=== PATIENT | female | born 1965 ===

== ENCOUNTER 2019-10-07 08:18 | Observation (INO) ==
--- NOTE | 2019-10-02 16:33 | PAT Medication Instructions ---
Medication Instructions Date of Service October 02, 2019 Home Medications cetirizine [Zyrtec] 10 mg PO DAILY PRN chlorthalidone 25 mg PO QAM duloxetine [Cymbalta] 30 mg PO HS leflunomide 20 mg PO HS lisinopril 10 mg PO HS multivitamin 1 tab PO DAILY omeprazole 20 mg PO HS prednisone 5 mg PO HS simvastatin [Zocor] 5 mg PO HS trazodone 50 mg PO HS ASK your prescriber and surgeon leflunomide 20 mg PO HS DO NOT take the morning of surgery multivitamin 1 tab PO DAILY cetirizine [Zyrtec] 10 mg PO DAILY PRN chlorthalidone 25 mg PO QAM Take evening before surgery omeprazole 20 mg PO HS prednisone 5 mg PO HS simvastatin [Zocor] 5 mg PO HS trazodone 50 mg PO HS lisinopril 10 mg PO HS duloxetine [Cymbalta] 30 mg PO HS OTHERWISE NOTHING TO EAT OR DRINK AFTER MIDNIGHT: Other Notes If you have any questions please call us at [phone] or [phone] or [phone] or [phone]
--- NOTE | 2019-10-03 08:37 | History & Physical Report ---
Date of Service October 03, 2019 History of Present Illness Primary Care Provider: Balbina Jackson DO Allergies Allergy/AdvReac Type Severity Reaction Status Date / Time adhesive tape Allergy Severe SKIN Verified 10/02/19 08:48 REMOVAL OF ALL LAYERS Penicillins Allergy Intermediate HIVES Verified 05/09/12 10:33 Home Medications Home Medications Medication Instructions Recorded Confirmed Type cetirizine [Zyrtec] 10 mg PO DAILY PRN 10/02/19 10/02/19 History chlorthalidone 25 mg PO QAM 10/02/19 10/02/19 History duloxetine [Cymbalta] 30 mg PO HS 10/02/19 10/02/19 History leflunomide 20 mg PO HS 10/02/19 10/02/19 History lisinopril 10 mg PO HS 10/02/19 10/02/19 History multivitamin 1 tab PO DAILY 10/02/19 10/02/19 History omeprazole 20 mg PO HS 10/02/19 10/02/19 History prednisone 5 mg PO HS 10/02/19 10/02/19 History simvastatin [Zocor] 5 mg PO HS 10/02/19 10/02/19 History trazodone 50 mg PO HS 10/02/19 10/02/19 History Past Med/Surg History Medical History Asthma RELATED TO ALLERGIES Depression with anxiety GERD (gastroesophageal reflux disease) Hyperlipidemia Hypertension Migraine Osteoarthritis Peripheral neuropathy RT FOOT Rheumatoid arthritis WAS TAKING HUMIRA (STOPPED PRIOR TO SURGERY PER INSTRUCTIONS) Surgical History History of colonoscopy History of endometrial ablation History of nasal septoplasty 4 TOTAL SURGERIES History of open reduction and internal fixation (ORIF) procedure LEFT ANKLE (HARDWARE INTACT) Previous back surgery LASER LUMBAR SPINE SURGERY [place] teeth removed Family History Other No significant family history Social History Preferred Language: Latvian Gymnastic Coach Required: No Beliefs That Will Affect Care: None Current Living Situation: Significant Other Feels Safe at Home: Yes Safety Concerns: Feels Safe At This Time Smoking Status: Never smoker Do You Dip or Chew Tobacco: No ; Second Hand Exposure: Yes ( A CHILD) ; Tobacco Cessation Education Requested by Patient: No Hx Alcohol Use: Yes Alcohol type: wine Hx Substance Use: No
--- NOTE | 2019-10-03 08:38 | History & Physical Report ---
Date of Service October 03, 2019 date of surgery: 10-07-19 Assessment & Plan (1) Arthritis of right knee: Risks and benefits of procedure discussed in detail today, patient would like to proceed with a Right total knee replacement at [facility] as scheduled. will obtain PATs at [facility]. Will place on ASA 81mg po bid x 1 month post op, f/u 2 weeks post op for routine post-operative care and x-ray, sooner if having any problems. will make arrangements for HHPT at the time of discharge. At this point in time, has failed conservative measures and would like to proceed with surgical intervention. History of Present Illness Chief Complaint: Right knee pain Primary Care Provider: Balbina Jackson DO Ms Antony is a 54 year old female who is here for a follow up of Right knee pain, presents for pre-op evaluation prior to a right total knee replacement at [facility]. She complains of pain and stiffness in her right knee. She states that the symptoms have been chronic non-traumatic. Currently the patient states that the symptoms are moderate-severe and is described as aching and throbbing. The symptoms occur intermittently. The symptoms are aggravated by ascending stairs, descending stairs, daily activities, kneeling, repetitive activities, sleeping in any position, squatting and walking. In addition to knee pain she is also experiencing limping, nighttime awakening, decreased mobility, difficulty bending, difficulty going to sleep, pain, stiffness and weakness. Prior NSAIDs include ibuprofen and Voltaren topical gel. Patient was treated with b/l knee Gel One injections in November, without much relief. Allergies Allergy/AdvReac Type Severity Reaction Status Date / Time adhesive tape Allergy Severe SKIN Verified 10/02/19 08:48 REMOVAL OF ALL LAYERS Penicillins Allergy Intermediate HIVES Verified 05/09/12 10:33 Home Medications Home Medications Medication Instructions Recorded Confirmed Type cetirizine [Zyrtec] 10 mg PO DAILY PRN 10/02/19 10/02/19 History chlorthalidone 25 mg PO QAM 10/02/19 10/02/19 History duloxetine [Cymbalta] 30 mg PO HS 10/02/19 10/02/19 History leflunomide 20 mg PO HS 10/02/19 10/02/19 History lisinopril 10 mg PO HS 10/02/19 10/02/19 History multivitamin 1 tab PO DAILY 10/02/19 10/02/19 History omeprazole 20 mg PO HS 10/02/19 10/02/19 History prednisone 5 mg PO HS 10/02/19 10/02/19 History simvastatin [Zocor] 5 mg PO HS 10/02/19 10/02/19 History trazodone 50 mg PO HS 10/02/19 10/02/19 History lorazepam 0.5 mg PO HS PRN 10/03/19 10/03/19 History Past Med/Surg History Medical History Asthma RELATED TO ALLERGIES- IMPROVED WITH ALLERGY MEDICINE Depression with anxiety GERD (gastroesophageal reflux disease) WELL CONTROLLED AND STABLE Hyperlipidemia Hypertension Migraine Osteoarthritis Peripheral neuropathy RT FOOT Rheumatoid arthritis WAS TAKING HUMIRA (STOPPED PRIOR TO SURGERY PER INSTRUCTIONS) Surgical History History of colonoscopy History of endometrial ablation History of nasal septoplasty 4 TOTAL SURGERIES History of open reduction and internal fixation (ORIF) procedure LEFT ANKLE (HARDWARE INTACT) Previous back surgery LASER LUMBAR SPINE SURGERY [place] teeth removed Family History Other No significant family history Social History Preferred Language: Palauan Compliance Specialist Required: No Beliefs That Will Affect Care: None Current Living Situation: Significant Other Feels Safe at Home: Yes Safety Concerns: Feels Safe At This Time Smoking Status: Never smoker Do You Dip or Chew Tobacco: No ; Second Hand Exposure: Yes ( A CHILD) ; Tobacco Cessation Education Requested by Patient: No Hx Alcohol Use: Yes Alcohol type: wine Hx Substance Use: No Review of Systems Review of Systems: All systems reviewed & are unremarkable except as noted in HPI & below Constitutional: no fever, no chills and no sweats Respiratory: no cough and no dyspnea Cardiovascular: no chest pain, no dyspnea and no orthopnea Gastrointestinal: no abdominal pain, no nausea and no vomiting Musculoskeletal: as per Subjective / HPI Physical Exam Physical Exam: Ht: 5ft 8in Wt: 79.8kg BP: 118/68 Pulse: 78 Constitutional: WD/WN, vitals as above no acute distress Respiratory: normal respiratory effort, lungs clear to auscultation no respiratory distress, no labored breathing and does not use accessory muscles Cardiovascular: RRR, no murmur, no edema Gastrointestinal (Abdomen): normal bowel sounds, soft, nontender, no he patosplenomegaly Musculoskeletal: Knee: + knee abnormal to inspection (RIGHT KNEE- ), + effusion (+1 effusion), + surgical incision (well healed portals), + limited ROM of knee (ROM 0/3/110), + knee ROM with crepitation, + joint line tenderness (medial joint line) and + Trevor's sign positive; no deformity, no skin erythema, no ecchymosis, no valgus laxity, no varus laxity, anterior drawer test negative, Lyle's sign negative and pivot shift test negative Results & Data Results & Data ([facility]) Diagnostic Findings Right Knee X-ray from May 2019 showing degenerative changes to the right knee, narrowing of the medial compartment and patello-femoral joint with patellar spurring noted, findings showing joint space narrowing of the medial compartment and patello-femoral joint, osteophyte formation and subchondral sclerosis noted. overall varus alignment. no acute bony pathology noted.
--- NOTE | 2019-10-03 09:57 | Anesthesiology Consultation ---
Date of Service October 03, 2019 Assessment & Plan (1) Encounter for pre-operative examination: Chart Review Chart Review: Acceptable Risk for Surgery and Patient seen in Pre Admission Testing - Pt has history of RA- no recent c-spine- will leave to anesthesia discretion if needed DOS. Covid testing 10/03/19= Negative Per PAT apt 10/03/19, pt resides in [facility]. 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 Denies any known Covid positive contacts. Denies any current Covid related symptoms. Has preop Covid testing scheduled today at [facility] (10/02). Surgeon sent order Teaching & Discussion Pre-Anesthesia Teaching/Discussion Notes: Instructed NPO after midnight before surgery,except medications with 15 cc of water. Medication instructions provided according to the [facility] guidelines. History Surgery Operation Date: 10/07/19 09:55 Proposed Procedures p Right Total Knee Arthroplasty - Samuel Alexis DO Height/Weight Height: 5 ft 8 in Weight: 81.4 kg Allergies Allergy/AdvReac Type Severity Reaction Status Date / Time adhesive tape Allergy Severe SKIN Verified 10/02/19 08:48 REMOVAL OF ALL LAYERS Penicillins Allergy Intermediate HIVES Verified 05/09/12 10:33 Medications Home Medications Medication Instructions Recorded Confirmed Last Taken cetirizine [Zyrtec] 10 mg PO DAILY PRN 10/02/19 10/02/19 Unknown chlorthalidone 25 mg PO QAM 10/02/19 10/02/19 Unknown duloxetine [Cymbalta] 30 mg PO HS 10/02/19 10/02/19 Unknown leflunomide 20 mg PO HS 10/02/19 10/02/19 Unknown lisinopril 10 mg PO HS 10/02/19 10/02/19 Unknown multivitamin 1 tab PO DAILY 10/02/19 10/02/19 Unknown omeprazole 20 mg PO HS 10/02/19 10/02/19 Unknown prednisone 5 mg PO HS 10/02/19 10/02/19 Unknown simvastatin [Zocor] 5 mg PO HS 10/02/19 10/02/19 Unknown trazodone 50 mg PO HS 10/02/19 10/02/19 Unknown lorazepam 0.5 mg PO HS PRN 10/03/19 10/03/19 Unknown Past Medical History Medical History Asthma RELATED TO ALLERGIES- IMPROVED WITH ALLERGY MEDICINE Depression with anxiety GERD (gastroesophageal reflux disease) WELL CONTROLLED AND STABLE Hyperlipidemia Hypertension Migraine Osteoarthritis Peripheral neuropathy RT FOOT Rheumatoid arthritis WAS TAKING HUMIRA (STOPPED PRIOR TO SURGERY PER INSTRUCTIONS) Exercise / Class Metabolic Activity II 4-5 Yardwork/Stairs/Walk up hill (ONE FLIGHT OF STAIRS-NO CHEST PAIN OR SOB ) Past Family History Family History Other No significant family history Past Surgical History Surgical History History of colonoscopy History of endometrial ablation History of nasal septoplasty 4 TOTAL SURGERIES History of open reduction and internal fixation (ORIF) procedure LEFT ANKLE (HARDWARE INTACT) Previous back surgery LASER LUMBAR SPINE SURGERY [place] teeth removed Past Anesthesia History No Hx of Anesthesia Complications and No Family Hx of Anesthesia Complications History of PONV No Hx of PONV and No Hx of Motion Sickness Social History Smoking Status: Never smoker Do You Dip or Chew Tobacco: No Hx Alcohol Use: Yes Alcohol type: wine alcohol intake frequency: a few times a week Hx Substance Use: No substance use type: does not use Review of Systems Occ snoring- no apnea Wheezing- occ with asthma- currently stable and controlled Patient denies chest pain, shortness of breath, dyspnea on exertion,, cough, palpitations. No hx of seizures, stroke, ID, apnea/snoring. No hx of blood clots or blood transfusions Physical Exam Vital Signs VITALS BP 134/87 P 70 TEMP 97.3 SP02 100% RESP 16 Constitutional no acute distress ENMT Mouth: no TMJ clicking Thyromental Distance: > or= 3.5 Finger Breadths (3.5) Mallampati Class: III Cap fell off back molar Front top left tooth capped Neck neck extension not limited Respiratory normal respiratory effort; no respiratory distress Auscultation: lungs clear to auscultation bilaterally; no wheezes Cardiovascular Rate/Rhythm: regular rate and regular rhythm Heart Sounds: no murmur Vessels: no carotid bruit Musculoskeletal Spine: no pain with cervical ROM Neurologic moves all extremities Psychiatric Orientation: alert Testing Laboratory Results PT 11.1 Seconds (9.0-12.0) 10/03/19 10:17 INR 1.1 (0.9-1.1) 10/03/19 10:17 APTT 26.1 Seconds (21.0-31.0) 10/03/19 10:17 Hemoglobin A1c 5.3 % (4.5-5.6) 10/03/19 10:17 Urine Color Yellow 10/03/19 10:17 Urine Appearance Clear (Clear) 10/03/19 10:17 Urine pH 7.0 (4.5-7.5) 10/03/19 10:17 Ur Specific [place] 1.018 (1.000-1.030) 10/03/19 10:17 Urine Protein Negative (Negative) 10/03/19 10:17 Urine Glucose (UA) Negative (Negative) 10/03/19 10:17 Urine Ketones Negative (Negative) 10/03/19 10:17 Urine Nitrite Negative (Negative) 10/03/19 10:17 Ur Leukocyte Esterase Negative (Negative) 10/03/19 10:17 Blood Type AB Negative 10/03/19 10:17 Antibody Screen NEGATIVE 10/03/19 10:17 09/19/19= WBC: 4.55 H/H: 14.0/44.2 PLATELETS: 221 SODIUM: 138 POTASSIUM: 4.2 CHLORIDE: 100 CO2: 26 BUN: 14 CREATININE: 0.8 GLUCOSE: 80 Electrocardiogram Date: 10/03/19 Findings: + NSR @ (67) Chest X-Ray Date: 10/03/19 Findings: + NAD
--- NOTE | 2019-10-03 10:41 | XRay Report ---
XR chest Pre-admission PA/Lat CLINICAL HISTORY: pat preoperative COMPARISON STUDY: No previous studies for comparison. FINDINGS: The bones soft tissues and hemidiaphragms are normal. The cardiomediastinal silhouette is n ormal. The lungs are clear. The pulmonary vasculature is normal. IMPRESSION: Negative chest. ACT 112: Negative or not required by law. The above report was generated using voice recognition software. It may contain grammatical, syntax or spelling errors. Electronically signed by: Jeffy Lee M.D. 10/03/2019 10:40 AM
[2019-10-03 10:49] LABS: Appearance Urine Clear (Clear); Bilirubin Urine Negative (Negative); Blood Urine Negative (Negative); Color Urine Yellow; Glucose Urine UA Negative (Negative); Ketones Urine Negative (Negative); Leukocyte Esterase Urine Negative (Negative); Nitrite Urine Negative (Negative); Protein Urine Negative (Negative); Specific Gravity Urine 1.018 (1.000-1.030); Urobilinogen Urine Negative (Negative)
[2019-10-03 10:59] LABS: INR 1.1 (0.9-1.1); Partial Thromboplastin Ratio 0.9; Partial Thromboplastin Time 26.1 Seconds (21.0-31.0); Prothrombin Time 11.1 Seconds (9.0-12.0)
[2019-10-03 12:29] LABS: Estimated Average Glucose 105 mg/dl; Hemoglobin A1C 5.3 % (4.5-5.6)
--- NOTE | 2019-10-04 07:01 | Electrocardiogram Report ---
Test Reason : Blood Pressure : / mmHG Vent. Rate : 067 BPM Atrial Rate : 067 BPM P-R Int : 178 ms QRS Dur : 080 ms QT Int : 422 ms P-R-T Axes : 071 066 055 degrees QTc Int : 445 ms Normal sinus rhythm Normal ECG No previous ECGs available Confirmed by Nolan Mena ([id number]) on 10/04/2019 7:01:36 AM Referred By: Samuel Alexis Confirmed By:Nolan Mena
[~2019-10-07 08:18] MED LIST: ACETAMINOPHEN 500 MG TAB PO SCH; BUPIVACAINE 0.5 % 5 MG/1 ML PF 10ML VIAL ONE; CLINDAMYCIN 600 MG/54 ML BAG IV SCH; CeleBREX 200 MG CAP PO SCH; EPINEPHrine INJ 1 MG/ML AMP ONE; FAMOTIDINE 20 MG TAB PO SCH; GABAPENTIN 600 MG DOSE PO SCH; LR 500ML BOLUS, THEN 15ML/HR IV SCH; METOCLOPRAMIDE HCL 10 MG TABLET PO SCH; ROPIVACAINE 0.5% 5 MG/ML 30 ML VIAL ONE; ROPIVACAINE 0.5% HCL/PF 150 MG, BUPIVACAINE 0.5% MPF 30 ML, EPINEPHrine 30MG/30ML (OR U... INSTIL SCH; TRANEXAMIC ACID 1,000 MG **IV Intra-op IV SCH; TRANEXAMIC ACID 1,000 MG **IV Pre-op IV SCH
--- NOTE | 2019-10-07 08:56 | History & Physical Bridge Note ---
Date of Service October 07, 2019 History & Physical Bridge Note I have examined the patient, reviewed the History & Physical and in the interval since the performance of the History & Physical I have noted the following changes of clinical significance: no changes noted
[2019-10-07] MEDS ORDERED: ORTHO JOINT ANESTHETIC ONE (09:21)
[2019-10-07] MEDS ORDERED: BACITRACIN INJ 50,000 UNIT VIAL ONE (09:21)
[2019-10-07] MEDS ORDERED: MIDAZOLAM HCL 1 MG/ML 2ML VIAL ONE (09:27)
[2019-10-07] MEDS ORDERED: fentaNYL citrate 100 MCG/2 ML VIAL ONE (09:27)
--- NOTE | 2019-10-07 11:45 | Operative Report ---
Post Operative Report Pre & Post Diagnosis Operation Date: 10/07/19 09:55 Pre-Op Diagnosis: Unilateral Primary Osteoarthritis, Right Knee Post-Op Diagnosis: Unilateral Primary Osteoarthritis, Right Knee I identified the patient and participated in the time-out.: Yes Procedure Operation Date: 10/07/19 09:55 Actual Procedures p Right Total Knee Arthroplasty(Right) utilizing [employer] journey to non- block total knee arthroplasty size 3 femur size 3 tibia size 9 polyethylene size 32 oval patella- Samuel Alexis DO Surgeon Samuel Alexis DO Aquaculture Farm Manager ROLANDA Philip Estimated Blood Loss 10 Findings Consistent with Post-Op Diagnosis Patient presents with severe end-stage tricompartmental degenerative joint disease varus alignment subchondral sclerotic changes with marginal osteophytes eburnated [id number] pseudo-ligamentous laxity as well as a moderate to large effusion Specimens Bone and cartilage Drains Medium bore Hemovac Anesthesia Type MAC Regional Complications none Disposition Accompanied Patient To Recovery: No Disposition: Recovery Room Indications Patient presents with severe end-stage DJD of the right knee no response to conservative management she is failed attempted conservative management clinic physical therapy anti-inflammatories relative rest activity modification corticosteroid injections Visco supplementation she presents for right total knee arthroplasty above intraoperative findings no time surgery. Description of Procedure After proper prepping and draping of the Right lower extremity anterior midline incision was made over the region of the extensor extensor mechanism after meticulous hemostasis was obtained and maintained in subcutaneous tissues a medial parapatellar incision was made The patella was subluxed lateralward the medial lateral gutter were cleaned from any hypertrophic synovitis and scar tissue of the distal femoral block was placed and the distal femoral osteotomy cut was made subsequently the chamfers anterior and posterior osteotomy cuts were made utilizing the 4-in-1 block the tibia was subsequently subluxed anteriorward medial and ateral meniscal remnants were excised in their entirety remnants of the anterior and posterior cruciate ligaments were excised in their entirety excellent exposure of the proximal tibia was obtained the tibial osteotomy guide was placed on the proximal tibial osteotomy cut was made once again the knee was irrigated with copious amounts of sterile saline solution the patella was subsequently everted lateralward thickened scar tissue around the patella was removed the patella was subsequently cut utilizing a freehand technique and was drilled prepared for final preparation and placement of patella socially flexion-extension gaps were checked and the equal and symmetric trials were placed to the appropriate femoral and tibial trials with poly-spacer being placed for equal flexion and extension gaps and full range of motion including extension to 0 and flexion to 140 the trial components after having been taken to recovery range of motion was subsequently removed meticulous hemostasis was obtained and maintained subsequently a knee block injection of joint cocktail including ropivacaine 0.5% 150 mg. Bupivacaine 0.5% epinephrine 1-200,030 mL's toradol 30 mg dexamethasone 4 mg ketamine 10 mg clonidine 100 micrograms normal saline solution 30 mg was infiltrated into the soft tissues of the posterior knee medial lateral gutters and periosteal synovium special attention was paid to protect neurovascular structures at all times subsequently trial components having been removed the knee was irrigated with sterile saline solution. debris was removed the proximal tibia was subsequently prepared and was made ready for the placement of the tibial component tibial component was also cemented and tamped into position the femoral component was subsequently placed and cemented in the position the patellar component was subsequently cemented in position because hemostasis once again obtained and maintained wound having been thoroughly irrigated with debridement and debridement lavage was performed as well as a medial parapatellar incision closed with #1 Vicryl in interrupted fashion subcutaneous was closed with #2 Vicryl skin was closed with skin clips. PA-C was necessary for prepping and drapping as well as wound closure of deep fascia Sub cutaneous tissue and skin and was necessary for the case. A sterile compressive dressing was placed patient was taken to recovery in stable condition of report dictated by Reuben I attest to the content of the Intraoperative Record and any orders documented therein. Any exceptions are noted below. I attest to the content of the Intraoperative Record and any orders documented therein. Any exceptions are noted below.
[2019-10-07] MEDS ORDERED: PROPOFOL IV EMULSION 10 MG/ML 20 ML VIAL IV ONE (12:07)
[2019-10-07] MEDS ORDERED: LIDOCAINE HCL 2% 2 ML VIAL/AMP(20MG/ML) INFIL ONE (12:07)
[2019-10-07] MEDS ORDERED: ATROPINE SULFATE 0.1 MG/ML 10ML SYR IV PRN (12:41)
[2019-10-07] MEDS ORDERED: ePHEDrine sulfate 50 MG/ML AMP IV PRN (12:41)
--- NOTE | 2019-10-07 12:49 | XRay Report ---
XR knee RT 1 or 2V routine HISTORY: 54 years-old Female Surgical Post Op right knee total joint arthroplasty COMPARISON: None TECHNIQUE: 2 views the right knee FINDINGS: Right knee total joint arthroplasty and patella resurfacing. Satisfactory alignment without acute fra cture or retained foreign body. Expected postsurgical soft tissue swelling and deep tissue air with s urgical drainage catheter. IMPRESSION: Right knee total joint arthroplasty with expected postoperative findings. ACT 112: Negative or not required by law. The above report was generated using voice recognition software. It may contain grammatical, syntax o r spelling errors. Electronically signed by: Andrez Galeas M.D. 10/07/2019 12:47 PM
--- NOTE | 2019-10-07 13:19 | Anesthesiology Progress Note ---
Date of Service October 07, 2019 Anesthesia Post Procedure Vital Signs Vital Signs: Temp Pulse Pulse Resp BP Pulse Ox 10/07/19 13:05 36.4 C L 69 14 98/65 L 96 10/07/19 12:55 36.4 C L 69 14 111/69 99 10/07/19 12:45 71 14 102/68 97 10/07/19 12:35 72 16 108/65 98 10/07/19 12:25 83 20 106/65 100 10/07/19 12:18 36.9 C 80 14 97/59 L 99 10/07/19 09:16 36.6 C 74 16 126/80 98 Transfer of Care Handoff Completed per policy Notes Mental Status: alert / awake / arousable Patient Amnestic to Procedure: Yes Nausea / Vomiting: adequately controlled Pain: adequately controlled Airway Patency, RR, SpO2: stable & adequate BP & HR: stable & adequate Hydration State: stable & adequate Neuraxial Anesthesia: was administered and sensory block is resolving Anesthetic Complications: no major complications apparent
[2019-10-07] MEDS ORDERED: ONDANSETRON INJ 2 MG/ML 2 ML VIAL IV PRN (13:36)
[2019-10-07] MEDS ORDERED: METOCLOPRAMIDE HCL INJ 5 MG/ML 2 ML VIAL IV PRN (13:36)
[2019-10-07] MEDS ORDERED: NALOXONE HCL 0.4 MG/1 ML VIAL/CARP IV PRN (13:36)
[2019-10-07] MEDS ORDERED: MAGNESIUM HYDROXIDE SUSP 30 ML UDC PO PRN (13:36)
[2019-10-07] MEDS ORDERED: bisacodyL 10 MG SUPP PR PRN (13:36)
[2019-10-07] MEDS ORDERED: HYDROmorphone INJ 1 MG/ML SYRINGE IV PRN (13:36)
[2019-10-07] MEDS ORDERED: CETIRIZINE HCL 10 MG TABLET PO PRN (13:36)
[2019-10-07] MEDS ORDERED: LORazepam 0.5 MG TAB PO PRN (13:36)
[2019-10-07] MEDS: SODIUM CHLORIDE 0.9% 1000ML 1,000 ML IV SCH ×2 (14:14→23:51)
[2019-10-07] MEDS: ACETAMINOPHEN 500 MG TAB PO SCH ×2 (14:29→21:45)
[2019-10-07] MEDS: CLINDAMYCIN 600 MG in DEXTROSE 5% 50 ML IV SCH (18:13)
[2019-10-07] MEDS: KETOROLAC TROMETHAMINE 15 MG/ML VIAL IV SCH ×2 (18:14→23:51)
[2019-10-07] MEDS: OXYCODONE HCL IR 5 MG TAB (IMMEDIATE RELEASE) PO PRN (20:04)
[2019-10-07] MEDS: DOCUSATE SODIUM 100 MG CAP PO SCH (20:11)
[2019-10-07] MEDS: ASPIRIN 81 MG ECTAB PO SCH (20:11)
[2019-10-07] MEDS ORDERED: CeleBREX 200 MG CAP PO SCH (21:00)
[2019-10-07] MEDS ORDERED: lisinopriL 10 MG TAB PO SCH (21:00)
[2019-10-07] MEDS ORDERED: predniSONE 5 MG TAB PO SCH (21:00)
[2019-10-07] MEDS ORDERED: SIMVASTATIN 5 MG TAB PO SCH (21:00)
[2019-10-07] MEDS ORDERED: SENNA 8.6 MG TAB PO SCH (21:00)
[2019-10-07] MEDS ORDERED: DULOXETINE HCL 30 MG CAP PO SCH (21:00)
[2019-10-07] MEDS ORDERED: LEFLUNOMIDE 10 MG TAB PO SCH (21:00)
[2019-10-07] MEDS ORDERED: TRAZODONE HCL 50 MG TAB PO SCH (21:00)
[2019-10-08] MEDS: CLINDAMYCIN 600 MG in DEXTROSE 5% 50 ML IV SCH (02:46)
[2019-10-08] MEDS: OXYCODONE HCL IR 5 MG TAB (IMMEDIATE RELEASE) PO PRN ×3 (02:47→12:31)
[2019-10-08] MEDS: KETOROLAC TROMETHAMINE 15 MG/ML VIAL IV SCH ×2 (06:03→12:23)
[2019-10-08] MEDS: ACETAMINOPHEN 500 MG TAB PO SCH ×2 (06:03→12:22)
[2019-10-08 06:16] LABS: Hematocrit (blood only) 35.2 % (37-47); Hemoglobin 11.8 g/dL (12.0-16.0); Mean Corpuscular Hemoglobin 32.1 pg (25-34); Mean Corpuscular Hgb Conc 33.5 g/dL (32-36); Mean Corpuscular Volume 95.7 fL (80-100); Mean Platelet Volume 11.2 fL (7.4-10.4); Platelet Count 223 K/uL (130-400); RDW Coefficient of Variation 12.7 % (11.5-14.5); Red Blood Count 3.68 M/uL (4.2-5.4); White Blood Count 10.62 K/uL (4.8-10.8)
[2019-10-08 06:41] LABS: BUN Creatinine Ratio 15.9 (10-20); Calcium 8.8 mg/dl (8.5-10.1); Creatinine Clr Calc Pharmacy 86.3 ml/min; Est GFR (African American) 93.4; Est GFR (Non-African American) 80.6; Potassium 3.8 mmol/L (3.5-5.1)
[2019-10-08] MEDS: DOCUSATE SODIUM 100 MG CAP PO SCH (08:20)
[2019-10-08] MEDS: ASPIRIN 81 MG ECTAB PO SCH (08:20)
--- NOTE | 2019-10-08 08:23 | Anesthesiology Progress Note ---
Date of Service October 08, 2019 Anesthesia Post Procedure Vital Signs Vital Signs: Temp Pulse Pulse Resp BP Pulse Ox 10/08/19 07:10 36.7 C 68 16 104/68 99 10/08/19 02:48 36.6 C 98 H 18 116/76 96 10/07/19 23:03 36.5 C 75 16 134/82 97 10/07/19 19:44 36.4 C L 77 17 149/94 H 98 10/07/19 16:26 36.6 C 71 17 113/78 95 10/07/19 15:32 36.4 C L 81 17 121/80 95 10/07/19 14:30 37.1 C 68 16 131/88 96 10/07/19 14:00 36.4 C L 69 16 130/87 99 10/07/19 13:30 36.5 C 72 16 109/73 97 10/07/19 13:05 36.4 C L 69 14 98/65 L 96 10/07/19 12:55 36.4 C L 69 14 111/69 99 10/07/19 12:45 71 14 102/68 97 10/07/19 12:35 72 16 108/65 98 10/07/19 12:25 83 20 106/65 100 10/07/19 12:18 36.9 C 80 14 97/59 L 99 10/07/19 09:16 36.6 C 74 16 126/80 98 Notes Mental Status: alert / awake / arousable and participated in evaluation Nausea / Vomiting: adequately controlled Pain: adequately controlled Airway Patency, RR, SpO2: stable & adequate BP & HR: stable & adequate Hydration State: stable & adequate Anesthetic Complications: no major complications apparent and Pt Satisfied with anesthetic care Notes: pt is having numbness in right foot with foot drop
--- NOTE | 2019-10-08 08:59 | Orthopedic Progress Note ---
Date of Service October 08, 2019 Assessment & Plan (1) History of total right knee replacement: POD #1 s/p Right TKA pt/ot dvt proph with ANA/SCD/ASA plan for d/c home with HHPT, will recheck later today to see if her foot drop is improving. likely secondary to intra-articular injection. (2) Foot drop: Admission and Anticipated Discharge Date Admission Date: October 07, 2019 Subjective POD #1 s/p Right TKA Review of Systems Constitutional: no fever, no chills and no sweats Respiratory: no cough and no dyspnea Cardiovascular: no chest pain and no dyspnea Gastrointestinal: no abdominal pain, no nausea and no vomiting Physical Exam Physical Exam: Vital Signs Temp 36.7 C 10/08/19 07:10 Pulse 68 10/08/19 07:10 Resp 16 10/08/19 07:10 BP 104/68 10/08/19 07:10 Pulse Ox 99 10/08/19 07:10 Intake & Output 10/07/19 10/08/19 10/08/19 18:59 06:59 18:59 Intake Total 1906.333 / 4215.33 3 2309.000 / 4215.33 3 Output Total 760 / 3710 2950 / 3710 Balance 1146.333 / 505.333 -641.000 / 505.333 Weight 80.493 kg Intake: IV 1206.333 / 2415.33 3 1209.000 / 2415.33 3 Cleocin 600 mg In D5w 50 ml @ 54 / 108 54 / 108 100 mls/hr IV Q8H SNEHA Rx#: [id number] CLEOCIN 600 mg In 54 ml @ 100 54 / 54 mls/hr IV PREO P SNEHA Rx#: [id number] Lr 1,000 ml @ 15 mls/hr IV . 500 / 500 Q24H SNEHA Rx#:[id number] Nss 1000ML 1,0 00 ml @ 100 mls/ 398.333 / 4924.656 4851.000 / 1553.33 3 hr IV .Q10H SC H Rx#:[id number] TRANEXAMIC ACI D / 0.7% NACL 1, 200 / 200 000 mg In 100 ml @ 600 mls/hr IV TODAY@0600 SNEHA Rx#:[id number] IV Perioperative 700 / 700 Oral 1100 / 1100 Output: Urine 750 / 3375 2625 / 3375 Estimated Blood Loss Drain Output 0 / 325 325 / 325 Right Knee 0 / 325 325 / 325 Constitutional: WD/WN, vitals as above no acute distress Musculoskeletal: Right Leg: NVDI, calf SNT, negative phil sign. DP palpable. dressing clean dry and intact. foot drop present Results & Data ([facility]) Vital Signs (Past 12 Hours) Vital Signs Temp Pulse Resp BP Pulse Ox 10/08/19 07:10 36.7 C 68 16 104/68 99 10/08/19 02:48 36.6 C 98 H 18 116/76 96 10/07/19 23:03 36.5 C 75 16 134/82 97 Laboratory Results Laboratory Results WBC 10.62 K/uL (4.8-10.8) 10/08/19 05:35 RBC 3.68 M/uL (4.2-5.4) L 10/08/19 05:35 Hgb 11.8 g/dL (12.0-16.0) L 10/08/19 05:35 Hct 35.2 % (37-47) L 10/08/19 05:35 MCV 95.7 fL (80-100) 10/08/19 05:35 MCH 32.1 pg (25-34) 10/08/19 05:35 MCHC 33.5 g/dL (32-36) 10/08/19 05:35 RDW Std Deviation 44.0 fL (36.4-46.3) 10/08/19 05:35 RDW Coeff of Juan 12.7 % (11.5-14.5) 10/08/19 05:35 Plt Count 223 K/uL (130-400) 10/08/19 05:35 MPV 11.2 fL (7.4-10.4) H 10/08/19 05:35 PT 11.1 Seconds (9.0-12.0) 10/03/19 10:17 INR 1.1 (0.9-1.1) 10/03/19 10:17 APTT 26.1 Seconds (21.0-31.0) 10/03/19 10:17 PTT Ratio 0.9 10/03/19 10:17 Sodium 142 mmol/L (136-145) 10/08/19 05:35 Potassium 3.8 mmol/L (3.5-5.1) 10/08/19 05:35 Chloride 109 mmol/L (98-107) H 10/08/19 05:35 Carbon Dioxide 26 mmol/L (21-32) 10/08/19 05:35 Anion Gap 7.0 (3-11) 10/08/19 05:35 BUN 13 mg/dl (7-18) 10/08/19 05:35 Creatinine 0.82 mg/dl (0.6-1.2) 10/08/19 05:35 Est Cr Clr Drug Dosing 86.3 ml/min 10/08/19 05:35 Est GFR ( Amer) 93.4 10/08/19 05:35 Est GFR (Non-Af Amer) 80.6 10/08/19 05:35 BUN/Creatinine Ratio 15.9 (10-20) 10/08/19 05:35 Glucose 120 mg/dl (70-99) H 10/08/19 05:35 Estimat Average Glucose 105 mg/dl 10/03/19 10:17 Hemoglobin A1c 5.3 % (4.5-5.6) 10/03/19 10:17 Calcium 8.8 mg/dl (8.5-10.1) 10/08/19 05:35 Urine Color Yellow 10/03/19 10:17 Urine Appearance Clear (Clear) 10/03/19 10:17 Urine pH 7.0 (4.5-7.5) 10/03/19 10:17 Ur Specific Amery 1.018 (1.000-1.030) 10/03/19 10:17 Urine Protein Negative (Negative) 10/03/19 10:17 Urine Glucose (UA) Negative (Negative) 10/03/19 10:17 Urine Ketones Negative (Negative) 10/03/19 10:17 Urine Blood Negative (Negative) 10/03/19 10:17 Urine Nitrite Negative (Negative) 10/03/19 10:17 Urine Bilirubin Negative (Negative) 10/03/19 10:17 Urine Urobilinogen Negative (Negative) 10/03/19 10:17 Ur Leukocyte Esterase Negative (Negative) 10/03/19 10:17 POC Ur Test NEG (NEG) 10/07/19 09:30 SARS-CoV-2 RNA (RT-PCR) NEGATIVE (Negative) 10/03/19 10:25 Blood Type AB Negative 10/03/19 10:17 Antibody Screen NEGATIVE 10/03/19 10:17 Diagnostic Findings XR knee RT 1 or 2V routine HISTORY: 54 years-old Female Surgical Post Op right knee total joint arthroplasty COMPARISON: None TECHNIQUE: 2 views the right knee FINDINGS: Right knee total joint arthroplasty and patella resurfacing. Satisfactory alignment without acute fracture or retained foreign body. Expected postsurgical soft tissue swelling and deep tissue air with surgical drainage catheter. IMPRESSION: Right knee total joint arthroplasty with expected postoperative findings.
[2019-10-08] MEDS ORDERED: MULTIVITAMIN TAB PO SCH (09:00)
--- NOTE | 2019-10-08 19:11 | Discharge Summary ---
Date of Service date of discharge: October 08, 2019 date of admission: 10-07-19 Admission HPI Per Admitting Provider Ms Antony is a 54 year old female who is here for a follow up of Right knee pain, presents for pre-op evaluation prior to a right total knee replacement at [facility]. She complains of pain and stiffness in her right knee. She states that the symptoms have been chronic non-traumatic. Currently the patient states that the symptoms are moderate-severe and is described as aching and throbbing. The symptoms occur intermittently. The symptoms are aggravated by ascending stairs, descending stairs, daily activities, kneeling, repetitive activities, sleeping in any position, squatting and walking. In addition to knee pain she is also experiencing limping, nighttime awakening, decreased mobility, difficulty bending, difficulty going to sleep, pain, stiffness and weakness. Prior NSAIDs include ibuprofen and Voltaren topical gel. Patient was treated with b/l knee Gel One injections in November, without much relief. Principal Diagnosis right knee replacement Discharge Exam Vital Signs Temp Pulse Resp BP Pulse Ox 10/08/19 14:38 36.8 C 82 16 118/73 95 10/08/19 12:55 36.7 C 68 16 104/68 99 10/08/19 07:10 36.7 C 68 16 104/68 99 10/08/19 02:48 36.6 C 98 H 18 116/76 96 10/07/19 23:03 36.5 C 75 16 134/82 97 10/07/19 19:44 36.4 C L 77 17 149/94 H 98 Intake and Output 10/08/19 10/08/19 10/08/19 06:59 14:59 22:59 Intake Total 1209.000 / 4215.333 Output Total 2125 / 3710 Balance -916.000 / 505.333 Intake: IV 1209.000 / 2415.333 Cleocin 600 mg In D5w 50 ml @ 54 / 108 100 mls/hr IV Q8H SNEHA Rx#: [id number] Nss 1000ML 1,000 ml @ 100 mls/ 1155.000 / 1553.333 hr IV .Q10H SNEHA Rx#:[id number] Output: Urine 2000 / 3375 Drain Output 125 / 325 Right Knee 125 / 325 Other: Weight 80.493 kg Patient Weight 06/11/20 06:59 Weight 80.493 kg Constitutional WD/WN, vitals as above no acute distress Musculoskeletal right knee: NVDI, calf SNT, negative phil sign. DP palpable, decreased AROM right ankle. dressing clean dry and intact. expected post-operative bruising no ana. Discharge Data Allergies Allergy/AdvReac Type Severity Reaction Status Date / Time adhesive tape Allergy Severe SKIN Verified 10/07/19 08:50 REMOVAL OF ALL LAYERS Penicillins Allergy Intermediate HIVES Verified 10/07/19 08:50 Consultations 10/07/19 13:36 Consult Case Management - Discharge Planning Routine Procedures Performed Operation Date: 10/07/19 09:55 Actual Procedures p Right Total Knee Arthroplasty(Right) - Samuel Alexis DO Ordered Studies 10/07/19 05:00 US - OR guided needle placemen Routine Hospital Course (1) History of total right knee replacement: POD #1 s/p Right TKA pt/ot dvt proph with ANA/SCD/ASA plan for d/c home with HHPT, will recheck later today to see if her foot drop is improving. likely secondary to intra-articular injection. (2) Foot drop: Total Time Total Time Spent Total Time Spent (In Minutes): 20 Discharge Plan Discharge Items Patient Disposition: Home - Home Health Services Reason For Visit: Unilateral Primary Osteoarthritis, Right Knee Discharge Diagnosis: right total knee replacement Condition on Discharge: Good Activity: Per Instructions section Weightbearing: Full weightbearing and Right weightbearing Non-emergency contact: Surgeon Call non-emergency contact if: you have any medication questions, your pain is not controlled, you have a fever, your temperature is above 101, your wound has increased drainage and your wound pain has increased Follow-up/Referrals: Balbina Jackson DO [Primary Care Provider] - Diet: Regular Addtl Attending Provider Instructions: ACTIVITY RECOMMENDATIONS: SELF CARE INSTRUCTIONS AFTER TOTAL KNEE REPLACEMENT A. You may need to continue a physical therapy program after discharge from the hospital. There are several options available to you. Your doctor will assist you in selecting the best one for you. 1. An out-patient facility 2 to 3 times a week for therapy or home therapy. 2. Continue working on all exercises taught to you in the hospital. Your goals should be to increase bending of your knee to 90 degrees and beyond and to fully straighten your knee. B. You may progress at your own pace from walking with a walker or crutches to a cane; then to no assistive devices. C. Make walking a part of your daily routine. Be up as much as comfortable with rest periods throughout the day. Rest with leg elevation is very important. Use the ice wrap frequently for the first 3-4 weeks. D. There are no restrictions on activities. You may ride in a car, shop, participate in household worker and all social activities. E. Wear the long elastic stockings (ANA hose) 20 hours a day for 2 weeks after surgery. They can be removed several times a day for laundering and for a bath. F. You may shower, no tub baths until cleared by your doctor. SPECIAL CARE INSTRUCTIONS: VERY IMPORTANT TO READ AND REVIEW A. There are a few signs you need to watch for after you are home. Call [facility] if you notice any of the followin. Increased severe knee pain. Some pain is expected especially when you exercise. 2. Increased swelling in your leg or knee; pain or swelling of the calf muscle in either lower leg. 3. Any fluid drainage from the incision. 4. Shortness of breath or chest pain. B. Please call [facility] at if you have any concerns or questions about your operation or recovery. The doctor or his nurse will return your call promptly. C. You must take antibiotics before dental work, bladder, bowel or other surgery. Your doctor will provide you with a permanent care to carry describing this precaution. IMPORTANT: * REMEMBER TO TAKE ASPIRIN, 81 MG, TWICE DAILY FOR 4 WEEKS UNLESS OTHERWISE DIRECTED. THIS IS YOUR BLOOD THINNER. * HIGH RISK PATIENTS MAY BE PRESCRIBED A STRONGER BLOOD THINNER. THIS WILL BE PROVIDED AT DISCHARGE. * CALL IF INCREASED PAIN, REDNESS, DRAINAGE OR FEVER GREATER THAT 101. * WEAR ANA HOSE 20 HOURS PER DAY FOR 2 WEEKS. * DERMABOND Prineo- This is a mesh tape dressing that is covered with glue. It should remain in place until the incision is properly healed, usually 10-14 days. This dressing is designed to naturally slough off. You may trim the excess mesh tape as it peels off. Incision may be briefly wet in a shower. Dry immediately by blotting with a clean, dry towel. Do not bath or swim until instructed by your doctor. Do not scratch, rub, or pick at the dressing. Do not apply any topical ointments or lotions until dressing is completely removed and/or instructed by your doctor. There may be a small piece of suture material at one end of your incision. Do not pull or trim this. If it is bothersome or catching on clothing, you may cover it with a band-aid. IF INCISION IS LEAKING THROUGH DRESSING, CALL THE OFFICE . FOLLOW UP VISIT: If appointment is not already scheduled: Please call [facility] to make a follow-up appointment for 2 weeks after your surgery at . Pending Studies at Discharge: No Stand-Alone Forms: My [facility] VisTracks, Smoking Cessation Medications and DC Order Prescriptions: New celecoxib [Celebrex] 200 mg Capsule 200 mg PO BID 30 Days Qty: 60 RF: 0 aspirin 81 mg Tablet,Delayed Release (Dr/Ec) 81 mg PO BID 30 Days Qty: 60 RF: 0 acetaminophen 500 mg Tablet 1,000 mg PO Q8 21 Days Qty: 126 RF: 0 oxycodone 5 mg Tablet 5 - 10 mg PO Q6H PRN (Reason: pain) Qty: 30 RF: 0 docusate sodium 100 mg Capsule 100 mg PO BID 10 Days Qty: 20 RF: 0 clindamycin HCl 300 mg capsule 300 mg PO TID 10 Days Qty: 30 RF: 0 Continued trazodone 50 mg Tablet 50 mg PO HS RF: 0 simvastatin [Zocor] 10 mg Tablet 5 mg PO HS RF: 0 prednisone 5 mg Tablet 5 mg PO HS RF: 0 chlorthalidone 25 mg Tablet 25 mg PO QAM RF: 0 leflunomide 20 mg Tablet 20 mg PO HS RF: 0 lisinopril 10 mg Tablet 10 mg PO HS RF: 0 duloxetine [Cymbalta] 30 mg Capsule,Delayed Release(Dr/Ec) 30 mg PO HS RF: 0 omeprazole 20 mg Tablet,Disintegrat, Delay Rel 20 mg PO HS RF: 0 multivitamin Tablet 1 tab PO DAILY RF: 0 cetirizine [Zyrtec] 10 mg Tablet 10 mg PO DAILY PRN (Reason: ALLERGY RELIEF) RF: 0 lorazepam 0.5 mg Tablet 0.5 mg PO HS PRN (Reason: Anxiety) RF: 0 Humira Pen 40 mg/0.8 mL Pen Injector Kit 0 mg SUBCUT .COMPLEX RF: 0 Discharge Orders: Discharge Order (Routine); Ordered 10/08/19 Ordered By: Jeffy Cuadra Admission Data Admit Date/Time: 10/07/19 12:25 Attending Provider: Samuel Alexis Admit Provider: Samuel Alexis Primary Care Provider: Balbina Jackson Other Providers: [facility],Home Healthcare Other Interventions: Discharge Summary Assessment (RN) Last Done: 10/08/19 12:55 DC Date/Time DO NOT enter until pt leaves facility: 10/08/19 14:58
[2019-10-08] MEDS ORDERED: CeleBREX 200 MG CAP PO SCH (21:00)
== END 2019-10-08 14:58 | disposition home health service (06) ==
LOC: ASU 08:18 → INTOOBSV 12:25 → 3E 12:25